=== PATIENT | female | born 1970 | race Caucasian/White ===

== ENCOUNTER 2021-05-01 08:34 | Inpatient (IN) | payer MEDICAID, SELFPAY ==
[2021-05-01] VITALS (13 sets, daily range): BP systolic 94–137; BP diastolic 61–89; PULSE 60–94; RESP 16–18; TEMP 36.1–36.8; O2SAT 92–98; BMI 40.6
--- NOTE | 2021-05-01 08:11 | NURSING ---
Per Dr. Ag pt is going to be taken care of by Dr. Burroughs. Dr. Burroughs paged to inform that direct admit is here.
--- NOTE | 2021-05-01 10:31 | HP.PCM.HOS_ITS ---
HPI - General General Date of Admission: 05/01/21 HPI Narrative ROLANDO SHARPE, is a 51 F who presents from home after a mechanical fall fractured her left ankle. This happened last evening, she states that she was opening yogurt and had thrown a little way and when she turned back to the table she lost her balance and broke her ankle. She lives in [place]. She was found to have a trimalleolar fracture and was accepted by orthopedic surgery in transfer for repair. She denies any lightheadedness or dizziness. No chest pain. She states she has a osteoporosis and had broken her other ankle a few years ago as well as her arm on the left well. She does not appear to be on any bisphosp honate COUNTS INCLUDE 234 BEDS AT THE [facility] Medical History (Updated 05/01/21 @ 10:[address] Lauro Burroughs MD) Anemia Anxiety COPD (chronic obstructive pulmonary disease) Coronary artery disease Depression DVT (deep venous thrombosis) GERD (gastroesophageal reflux disease) Hepatitis Hypertension Migraines Myocardial infarct Osteoporosis Home Medications albuterol sulfate 2.5 mg INHALATION Q6H 05/01/21 [History Last Taken Unknown] amitriptyline 25 mg PO QHS 05/01/21 [History Last Taken Unknown] aspirin [Aspirin Low Dose] 81 mg PO DAILY 05/01/21 [History Last Taken Unknown] atorvastatin 80 mg PO QHS 05/01/21 [History Last Taken Unknown] clonidine HCl 0.1 mg PO BID 05/01/21 [History Last Taken Unknown] famotidine 20 mg PO BID 05/01/21 [History Last Taken Unknown] fluoxetine 40 mg PO DAILY 05/01/21 [History Last Taken Unknown] furosemide 40 mg PO BID 05/01/21 [History Last Taken Unknown] gabapentin 800 mg PO TID 05/01/21 [History Last Taken Unknown] hyoscyamine sulfate 0.125 mg PO Q4H PRN 05/01/21 [History Last Taken Unknown] metoprolol succinate 25 mg PO DAILY 05/01/21 [History Last Taken Unknown] nystatin 1 applic TOPICAL BID PRN 05/01/21 [History Last Taken Unknown] ondansetron 4 mg PO Q8H PRN 05/01/21 [History Last Taken Unknown] promethazine 12.5 mg PO Q6H PRN PRN 05/01/21 [History Last Taken Unknown] rimegepant [Nurtec ODT] 75 mg PO DAILY PRN 05/01/21 [History Last Taken Unknown] Allergy/AdvReac Type Severity Reaction Status Date / Time amoxicillin Allergy Anaphylaxis Verified 05/01/21 09:45 cephalexin Allergy Anaphylaxis Verified 05/01/21 09:45 clarithromycin [From Biaxin] Allergy Anaphylaxis Verified 05/01/21 09:45 cortisone Allergy Anaphylaxis Verified 05/01/21 09:45 erythromycin base Allergy Anaphylaxis Verified 05/01/21 09:45 hydralazine Allergy Other Verified 05/01/21 09:45 morphine Allergy Shortness Verified 05/01/21 09:45 of breath Penicillins Allergy Anaphylaxis Verified 05/01/21 09:45 Sulfa (Sulfonamide Allergy Shortness Verified 05/01/21 09:45 Antibiotics) of breath amlodipine [From Norvasc] AdvReac Other Verified 05/01/21 09:45 hydroxyzine AdvReac Nausea/Vom/ Verified 05/01/21 09:45 Diarrhea ibuprofen AdvReac Nausea/Vom/ Verified 05/01/21 09:45 Diarrhea ketorolac AdvReac Diarrhea Verified 05/01/21 09:45 paper tape AdvReac Other Uncoded 05/01/21 09:45 Family History (Updated 05/01/21 @ 10:[address] Lauro Burroughs MD) Other COPD (chronic obstructive pulmonary disease) Diabetes Heart disease Surgical History (Updated 05/01/21 @ 10:[address] Lauro Burroughs MD) History of cholecystectomy History of coronary artery stent placement Status post total left knee replacement Social History Smoking Status: Current every day smoker tobacco type: cigarettes ROS Constitutional Constitutional: Denies chills, fatigue, fever(s) or malaise Eyes Eyes: Denies blurry vision ENT HEENT: Denies headache(s) or nasal discharge Cardiovascular Cardiovascular: Denies chest pain, dyspnea on exertion or syncope Respiratory/Chest Respiratory/Chest: Denies cough, shortness of breath at rest or shortness of breath with exertion Gastrointestinal Gastrointestinal: Denies constipation, diarrhea, nausea or vomiting Genitourinary Genitourinary: Denies dysuria Musculoskeletal Musculoskeletal: Reports joint pain Neurologic Neurologic: Denies focal weakness, numbness or tremor(s) Psychiatric Psychiatric: Denies anxiety or depression Vital Signs Vital Signs Vital Signs: 05/01/21 06:54 05/01/21 06:55 Temperature 97.7 F L Temperature Source Oral Pulse Rate 60 69 Respiratory Rate 18 Blood Pressure 108/72 Blood Pressure Mean 84 Blood Pressure Source Doppler/Manual Blood Pressure Position Semi-Fowlers Blood Pressure Location Right Forearm Pulse Ox 94 Oxygen Delivery Method Room Air Weight Weight: 236 lb 15.951 oz Body Mass Index (BMI) 40.6 Physical Exam Const alert, oriented x3 and no apparent distress General Appearance: cooperative HEENT normocephalic and moist oral mucous membranes Eyes PERRL, EOMs intact bilaterally and conjunctivae normal Neck supple and no JVD Resp normal respiratory effort, no retractions, no use of accessory muscles and clear to auscultation bilaterally Auscultation: Negative for crackles, rales, rhonchi or wheezes Cardio regular rate, regular rhythm, S1 normal heart sound, S2 normal heart sound and no murmurs GI soft to palpation, non-tender and non-distended; Negative for hepatosplenomegaly Extremity no clubbing, cyanosis or edema Extremity Narrative: Left ankle is in a splint and wrapped she does have sensation in her toes Skin no rashes or lesions noted Neuro no focal motor deficits and no sensory deficits noted Psych affect normal Appearance: appropriate Assessment & Plan Assessment/Plan (1) Trimalleolar fracture of right ankle: PLAN: 1. Right trimalleolar fracture -Mechanism was mechanical -Consult orthopedic surgery for repair -We'll check BMP and a CBC in the morning -She is trying to quit smoking and denies any significant shortness of breath or chest pain with ambulation -She is below average risk based on the calculator 2. CAD/HTN/HLD/morbid obesity -Blood pressures are stable and she is denying any chest pain or shortness of breath -Continue with her home medications -Given her Lasix, will monitor her creatinine before and after surgery to make any adjustment -BMI of 40.7, discussed lifestyle modifications. Also encouraged cessation of tobacco which she states she is in the process of 3. Anxiety/depression -Stable -Continue with amitriptyline DVT: Heparin Charges/Coding Visit Charges Inpatient E&M: 65218 Init Hosp L3
[2021-05-01] MEDS: 0.9% Normal Saline 1,000 ML 100 ML IV (10:42)
[2021-05-01] MEDS: HYDROmorphone 0.5 MG/0.5 ML SYRINGE IV ×2 (10:42→22:18)
--- NOTE | 2021-05-01 12:30 | CASEMGMT ---
RN AJAY OUTDOOR ADVENTURE GUIDES AJAY to room to meet with patient for initial transition planning/care coordination assessment. RN AJAY introduced self and role at [facility]. Pt voices understanding and consents to assessment at this time. Pt resting in bed in no distress at this time. Pt is A/O at this time and answers all questions appropriately. Care providers, pharmacy, and demographics verified/updated at this time. PCP: Amaris GUTIERREZ Specialists: Sees a psychiatrist Preferred Pharmacy: [facility] Retail Insurance:[facility] Prescription Benefit: Yes Living Will/HPOA: Pt does not currently have LW/HCPOA and declines info at this time. LNOK: Dad, Eris Kyle. Aunt, Lena Kyle Living Arrangements: Lives alone in 4th floor apt. Elevator access. No steps to enter. Independent prior to fall. Has Marija MOSS, through [facility] [employer] in [place]. Marija's # is: [phone]. She states she would like to get an aide once she returns home. Lori PRESTON, made aware. Transportation: Marija MOSS, provides all transportation. DME: States has the following DME: shower chair, rails/grab bars, nebulizer, walker, rollator. Has O2 @ home @ 2l/m continuously that she got from a company in [place]. She does not remember name of agency. Amaris GUTIERREZ, set it up. She states she has it available, but does not use it. Pt states no need for further DME at this time. HHC/SNF: No hx of SNF. Has had HHC in the past: [facility] in [facility]. Plans are for pt to go to OR today for external fixator application under anesthesia. Pt prefers to go home once medically ready, if able. PLAN: TBD by clinical course of treatment and progress w/therapy. Jaylene CONDON RN, CM
--- NOTE | 2021-05-01 12:51 | CON.PCM.OR_ITS ---
HPI Consult Data Date of Consult: 05/01/21 HPI Narrative HPI Narrative: ROLANDO SHARPE, is a 51 F who presents As a transfer from [place] early this morning 05/01/2021. She sustained a ground-level twisting injury to her right ankle. She was not reduced in the emergency department. She was splinted. Due to lack of orthopedic coverage, the emergency room physician contacted myself see if I would be willing to care the patient. I recommended transfer through the hospitalist. I would follow in consultation. Patient reports right ankle pain but denies any other associated injuries at time of examination. Patient had prior left ankle ORIF from a remote trauma. She denies numbness or tingling in the right lower extremity. Past medical history is significant for DVT, COPD, CAD, hepatitis, ID, stenting for which she takes aspirin and Effient. Her last dose of Effient was yesterday 04/30/2021. She has been n.p.o. since last night. [facility] Medical History (Updated 05/01/21 @ 10:[address] Lauro Burroughs MD) Anemia Anxiety COPD (chronic obstructive pulmonary disease) Coronary artery disease Depression DVT (deep venous thrombosis) GERD (gastroesophageal reflux disease) Hepatitis Hypertension Migraines Myocardial infarct Osteoporosis Home Medications albuterol sulfate 2.5 mg INHALATION Q6H 05/01/21 [History Last Taken Unknown] amitriptyline 25 mg PO QHS 05/01/21 [History Last Taken Unknown] aspirin [Aspirin Low Dose] 81 mg PO DAILY 05/01/21 [History Last Taken Unknown] atorvastatin 80 mg PO QHS 05/01/21 [History Last Taken Unknown] calcium carbonate-vitamin D2 [Oyster Shell Calcium-Vit D2] 1 tab PO BID 05/01/21 [History Last Taken Unknown] clonidine HCl 0.1 mg PO BID 05/01/21 [History Last Taken Unknown] famotidine 20 mg PO BID 05/01/21 [History Last Taken Unknown] fluoxetine 40 mg PO DAILY 05/01/21 [History Last Taken Unknown] furosemide 40 mg PO BID 05/01/21 [History Last Taken Unknown] gabapentin 800 mg PO TID 05/01/21 [History Last Taken Unknown] hyoscyamine sulfate 0.125 mg PO Q4H PRN 05/01/21 [History Last Taken Unknown] metoprolol succinate 25 mg PO DAILY 05/01/21 [History Last Taken Unknown] nystatin 1 applic TOPICAL BID PRN 05/01/21 [History Last Taken Unknown] ondansetron 4 mg PO Q8H PRN 05/01/21 [History Last Taken Unknown] pantoprazole 40 mg PO DAILY 05/01/21 [History Last Taken Unknown] potassium chloride 40 meq PO BID 05/01/21 [History Last Taken Unknown] promethazine 12.5 mg PO Q6H PRN PRN 05/01/21 [History Last Taken Unknown] rimegepant [Nurtec ODT] 75 mg PO DAILY PRN 05/01/21 [History Last Taken Unknown] Allergy/AdvReac Type Severity Reaction Status Date / Time amoxicillin Allergy Anaphylaxis Verified 05/01/21 09:45 cephalexin Allergy Anaphylaxis Verified 05/01/21 09:45 clarithromycin [From Biaxin] Allergy Anaphylaxis Verified 05/01/21 09:45 cortisone Allergy Anaphylaxis Verified 05/01/21 09:45 erythromycin base Allergy Anaphylaxis Verified 05/01/21 09:45 hydralazine Allergy Other Verified 05/01/21 09:45 morphine Allergy Shortness Verified 05/01/21 09:45 of breath Penicillins Allergy Anaphylaxis Verified 05/01/21 09:45 Sulfa (Sulfonamide Allergy Shortness Verified 05/01/21 09:45 Antibiotics) of breath amlodipine [From Norvasc] AdvReac Other Verified 05/01/21 09:45 hydroxyzine AdvReac Nausea/Vom/ Verified 05/01/21 09:45 Diarrhea ibuprofen AdvReac Nausea/Vom/ Verified 05/01/21 09:45 Diarrhea ketorolac AdvReac Diarrhea Verified 05/01/21 09:45 paper tape AdvReac Other Uncoded 05/01/21 09:45 Family History (Updated 05/01/21 @ 10:[address] Lauro Burroughs MD) Other COPD (chronic obstructive pulmonary disease) Diabetes Heart disease Surgical History (Updated 05/01/21 @ 10:[address] Lauro Burroughs MD) History of cholecystectomy History of coronary artery stent placement Status post total left knee replacement Social History Smoking Status: Current every day smoker tobacco type: cigarettes ROS ROS Narrative 10 point review of systems obtained, negative unless otherwise noted in HPI. Vital Signs Vital Signs Vital Signs: 05/01/21 06:54 05/01/21 06:55 Temperature 97.7 F L Temperature Source Oral Pulse Rate 60 69 Respiratory Rate 18 Blood Pressure 108/72 Blood Pressure Mean 84 Blood Pressure Source Doppler/Manual Blood Pressure Position Semi-Fowlers Blood Pressure Location Right Forearm Pulse Ox 94 Oxygen Delivery Method Room Air Weight Weight: 236 lb 15.951 oz Body Mass Index (BMI) 40.6 Physical Exam Narrative General -A&Ox3, NAD, appears stated age. Vital signs stable, afebrile. Respiratory -normal work of breathing, no intercostal retractions. CV -pulses regular, brisk capillary refill ?4 limbs. Abdomen-soft, nontender, nondistended. No guarding, rigidity, rebound tenderness. Musculoskeletal/neurologic -full range of motion nontender throughout bilateral upper extremities, left lower extremity with full sensation and strength in all dermatomes and myotomes. No midline cervical tenderness. Right lower extremity-AO type Short leg splint in place right lower extremity. Wiggles toes on command. Brisk capillary refill in the toes. Sensation intact along the dorsal and plantar aspect of the interspaces and toes. Nontender about the knee. No pain with logroll of the hip. Pelvis is stable, nontender. X-rays reviewed from [facility] 04/30/2021 Trimalleolar ankle fracture dislocation with transverse medial malleolus, lateral dislocation of the talus, transsyndesmotic E fibula, posterior malleoli are avulsion fracture encompassing likely 20% of the joint surface. Assessment & Plan Assessment/Plan (1) Trimalleolar fracture of right ankle: PLAN: Patient has a borderline dislocation of her right trimalleolar ankle fracture which was not reduced in the emergency department, it was splinted in situ. We discussed open reduction internal fixation acutely versus close reduction with application of external fixator of the right ankle. Due to her blood thinner Effient, which I would recommend she stop for 7 days prior to surgery due to risk of blood loss and wound healing problems, I recommended a closed reduction under anesthesia and application of ankle spanning external fixator right ankle. We discussed the risk, benefits, alternatives the procedure. Risks include but are not limited to bleeding, infection, loss of life limb, risk of anesthesia, persistent pain, need for additional surgery including removal of the external fixator, breakage of orthopedic hardware if bearing weight, stiffness, posttraumatic arthritis. Patient expressed understanding his risk was proceed with surgery. Informed consent obtained we will plan on elena rgjames this afternoon when a room becomes available. Clindamycin for antibiotic prophylaxis prior to incision N.p.o. Nonweightbearing right lower extremity
--- NOTE | 2021-05-01 13:51 | EKG12_ITS ---
Test Reason : PACU Blood Pressure : / mmHG Vent. Rate : 075 BPM Atrial Rate : 075 BPM P-R Int : 144 ms QRS Dur : 078 ms QT Int : 374 ms P-R-T Axes : 045 053 047 degrees QTc Int : 417 ms Normal sinus rhythm with sinus arrhythmia Normal ECG No previous ECGs available Confirmed by PRISCA CARDONA, KAYODE ([id number]), photo editor ELA OWENS ([id number]) on 05/04/2021 2:25:12 P M Referred By: JC Confirmed By:HUNTER COPE MD
--- NOTE | 2021-05-01 14:55 | RAD_ITS ---
STUDY: Fluoroscopically guided ORIF surgery of the right ankle. REASON FOR EXAM: Female, 51 years old. CLOSED REDUCTION W/ EXTERNAL FIXATION RIGHT ANKLE TECHNIQUE: Fluoroscopy was utilized during ORIF surgery of the ankle. The radiologist was not present in the room. 4 images were obtained during the exam. COMPARISON: None. FINDINGS: Images reveal metallic devices overlying bony structures. RAD/Ankle 2 Views IMPRESSION: Fluoroscopically guided RF surgery through the ankle. For details please see operative report. Electronically Signed: Denisse Younger MD at 0:21 EST , Service support ,
[2021-05-01] MEDS: Bupivacaine Mpf 0.5% 30 ML VIAL (15:41)
--- NOTE | 2021-05-01 15:55 | OP.PCM_ITS ---
Report of Operation Date of Procedure: 05/01/21 Description of Surgical Findings:: Preoperative diagnosis: Right ankle trimalleolar fracture dislocation Postoperative diagnosis: Right ankle trimalleolar fracture dislocation Procedure: 1. Administration of intra-articular ankle right block 2. Closed reduction right ankle fracture dislocation 3. Application of spanning external fixator right ankle Surgeon: Lauro Paiz DO Milk Delivery Driver: Karen Jackson PA-C Anesthesia: MAC with popliteal block and intra-articular ankle block Anesthesiologist: Dr. Munguia Complications: None Drains: None Estimated blood loss: 20 cc Urinary output: Per anesthesia record IV fluids: Per anesthesia record Specimens: None Surgical implants: Myron Lee 3 external fixation system with apex pins times two 5 mm diameter, calcaneus transfixing pin 4/5 x 250 mm. Coated Carbon connecting rods 400 mm x 2 Surgical indications: This a 51-year-old female who was a transfer from [facility]. She sustained a ground-level fall and sustained a right trimalleolar fracture of her ankle. Due to lack of orthopedic coverage she was transferred to [facility]. I saw the patient in consultation. X-rays from the outside institution were reviewed shortly after consultation. X-rays demonstrated a laterally dislocated right trimalleolar ankle fracture. I recommended urgent closed reduction with application of external fixator versus open reduction internal fixation. Patient does take Effient as an antiplatelet drug due to a remote stent in her heart. Due to recommendations of 7 days off antiplatelet medication and suspected soft tissue swelling, I recommended a closed reduction under anesthesia with application of ankle spanning external fixator. The risk, benefits alternatives to procedure were reviewed with patient at length she agreed to proceed. She expressed understanding wish she would need to undergo a subsequent procedure for removal of external fixator and likely open reduction internal fixation depending on her medical status and soft tissues. Informed consent obtained. Description of procedure: Patient was identified in the preoperative holding area by name, medical record number, date of . The operative extremity was marked. All questions answered patient satisfaction. A popliteal block was administered by Dr. Munguia prior to the procedure. Patient was brought to the operative suite and positioned supine a standard operating table. MAC anesthesia was induced. Splint was removed. We bumped the right hip to internally rotate the leg and elevated on bath blankets. I then administered a intra-articular ankle block with 10 cc total of 0.5% plain Marcaine anteriorly after prepping the ankle with rubbing alcohol. We then prepped and draped the right lower extremity in a normal, sterile orthopedic fashion. We performed a timeout with all parties in attendance in agreement with the side, site, operation be performed. No concerns were voiced and we elected to proceed. 900 mg clindamycin was administered by anesthesia staff. We first examined the skin. There is significant ecchymosis and suspected early blistering over the anterior medial ankle. I performed a closed reduction maneuver with traction and varus force. C arm was used to demonstrate appropriate reduction. We then plan to apply our standard delta frame external fixator. I planned my tibial pins 10 cm proximal to the end of the suspected tibial fixation. I marked the skin at appropriate levels. Skin was sharply incised with 15 blade scalpel. We drilled bicortically for 2 pins. Pins were placed to an appropriate depth and tightened by hand. He is achieved excellent fixation. We then turned attention to the calcaneus. Using a perfect lateral fluoroscopic image of the ankle, I planned a transfixion pin of the calcaneus 2 cm anterior and proximal to the posterior plantar corner of the calcaneus. This was drilled bicortically and driven out the lateral skin. We drilled the pin to an appropriate depth. We then constructed our delta frame. Reduction maneuver was applied and held with traction. Fluoroscopic images confirmed appropriate reduction. We then tightened the frame ensuring stability. We then applied Xeroform and pressure dressing gauze and Adolfo wrap over top of the wounds and leg. Patient tolerated procedure well without complication. She was transferred to her hospital bed and subsequently to PACU in stable condition. Need for skilled temporary administrative assistant: Karen Jackson PA-C was critical to the outcome of the case. During the course of the procedure the physician temporary administrative assistant played a vital role. Her intimate knowledge of my steps in the procedure aided in safe and expedient completion of the procedure. The PA played a vital role in positioning particularly in obtaining the appropriate positioning. Mrs. Jackson was able to hold the closed reduction maneuver while I performed final tightening of the fixation device, which was critical to the outcome of the procedure. Postoperative plan: Patient will be nonweightbearing to the operative extremity. Likely obtaining a CT scan of the right ankle tomorrow. She will likely need definitive fixation in the coming weeks once soft tissues allow. We discussed in the preoperative holding area about following up with her stitch welder in [place]. I discussed this is definitely possibility seen as she is so far away from home and the nonurgent timeframe now that we have achieved external fixation. We will determine definitive planning surgically in the next day or so. Okay to anticoagulate from my standpoint. PT/OT. Likely will need placement as patient does live alone.
--- NOTE | 2021-05-01 16:15 | SUR.PHASEI ---
blackmon catheter ordered preop by Dr Meyer at patients request. catheter placed by Kadeem BAILEY. Pt stated that catheter was hurting, Dr Prince states that it can be removed after surgery. Catheter removed by Eliot Wylie RN
--- NOTE | 2021-05-01 17:12 | SUR.PHASEI ---
dressing reinforced with kerlix, abds and kari wrap
[2021-05-01] MEDS: 0.9% Saline Lock 10 ML Syringe IV (22:18)
[2021-05-02] VITALS (9 sets, daily range): BP systolic 116–139; BP diastolic 75–82; PULSE 76–86; RESP 16–18; TEMP 36.6–37.3; O2SAT 86–98
[2021-05-02] MEDS: 0.9% Normal Saline 1,000 ML 100 ML IV (01:21)
[2021-05-02] MEDS: HYDROmorphone 0.5 MG/0.5 ML SYRINGE IV ×5 (03:00→20:37)
--- NOTE | 2021-05-02 03:15 | NURSING ---
pt unable to void, blackmon placed.
[2021-05-02] MEDS: Nystatin Powder 15gm Bottle 1 APPLIC TOPICAL (05:56)
[2021-05-02 07:24] LABS: Absolute Neutrophil Count 4.4 X10^3/uL (2.0-7.7); Basophil# 0.02 X10^3/uL; Basophil% 0.3 % (0-1); Eosinophil# 0.01 X10^3/uL; Eosinophils% 0.2 % (0-5); Hematocrit 31.1 % (37-47); Lymphocyte % 21.4 % (19-41); Mean Corp Hgb Conc 32.2 g/dL (32-36); Mean Corpuscular Hgb 30.3 pg (27.0-32.0); Mean Corpuscular Volume 94.2 fL (81-99); Mean Platelet Vol. 12.1 fl (6.2-12.0); Monocyte% 10.7 % (0-10); NRBC Flagged by Analyzer 0 % (0-5); Neutrophil # 4.38 X10^3/uL (2.7-7.7); Neutrophil % 67.1 % (47-70); Platelet Count 144 K/mm3 (150-450); RBC Distribution Width CV 12.8 % (11.6-14.6); RBC Distribution Width SD 43.9 fl (35.1-43.9); White Blood Count 6.5 K/mm3 (4.4-11.0)
[2021-05-02 07:53] LABS: Anion Gap 2 (5-15); BUN 8 mg/dL (7-18); BUN/Creat Ratio 13.1 RATIO (10-20); Calcium,Total 7.7 mg/dL (8.5-10.1); Chloride 107 mmol/L (98-107); Creatinine, Serum 0.61 mg/dL (0.55-1.02); EST Glomerular Filtration Rate 110 mL/min (>60); Est Glom Filt Rate - Afr Amer 133 mL/min (>60); Estimated Creatinine Clearance 94.22 ml/min; Glucose 113 mg/dL (74-106); Potassium 3.7 mmol/L (3.5-5.1); Sodium Level 140 mmol/L (136-145)
[2021-05-02] MEDS: oxyCODONE 5 MG Tablet 10 MG PO ×4 (08:06→22:53)
[2021-05-02] MEDS: Heparin Injection (Vial) 5,000 UNIT/ML VIAL 5000 UNIT SC ×3 (08:30→22:54)
--- NOTE | 2021-05-02 08:34 | PCM.PN.ORT ---
Subjective Subjective Patient seen and examined at bedside this morning. Significant bloody oozing noted from the proximal pins overnight which was reinforced by nursing. Denies fevers, chills, nausea vomiting, chest pain or shortness of breath. Pain has not been adequately controlled with IV Dilaudid only. She states her pain is improved from preop. She denies any new numbness or tingling and states sensation and motor are returning after her peroneal nerve block. Objective Data Objective Data Vital Signs: Vital Signs Temp Pulse Resp BP Pulse Ox 98.3 F 81 18 116/75 93 05/02/21 08:16 05/02/21 08:16 05/02/21 08:16 05/02/21 08:16 05/02/21 08:16 Oxygen Flow Rate (L/min) 3 Oxygen Delivery Method Nasal Cannula Weight: 236 lb 15.951 oz Body Mass Index (BMI) 40.6 Intake & Output: Intake and Output for Last 24 Hours 04/30/21 05/01/21 05/02/21 23:59 23:59 23:59 Intake Total 1106 / 1206 200 / 200 Output Total 600 / 600 500 / 500 Balance 506 / 606 -300 / -300 Lab / Micro Data Result Diagrams: 05/02/21 06:35 05/02/21 06:35 Labs: Laboratory Results - last 24 hr 05/02/21 06:35: WBC 6.5, RBC 3.30 L, Hgb 10.0 L, Hct 31.1 L, MCV 94.2, MCH 30.3, MCHC 32.2, RDW Std Deviation 43.9, RDW Coeff of Anna 12.8, Plt Count 144 L, MPV 12.1 H, Immature Gran % (Auto) 0.300, Neut % (Auto) 67.1, Lymph % (Auto) 21.4, [place] % (Auto) 10.7 H, Eos % (Auto) 0.2, Baso % (Auto) 0.3, Absolute Neuts (auto) 4.4, Absolute Lymphs (auto) 1.40, Nucleated RBC % 0 05/02/21 06:35: Sodium 140, Potassium 3.7, Chloride 107, Carbon Dioxide 31.0, Anion Gap 2 L, BUN 8, Creatinine 0.61, Estim Creat Clear Calc 94.22, Est GFR (MDRD) Af Amer 133, Est GFR (MDRD) Non-Af 110, BUN/Creatinine Ratio 13.1, Glucose 113 H, Calcium 7.7 L Micro: Microbiology 05/01/21 13:50 Nasal Secretion SARS-CoV-2 Antigen (Rapid) - Final Radiography Diagnostic Testing: Radiology Impression Ankle X-Ray 05/01/21 14:55 IMPRESSION: Fluoroscopically guided RF surgery through the ankle. For details please see operative report. Electronically Signed: Denisse Younger MD at 0:21 EST , Service support , Physical Exam Narrative General - A&Ox3, NAD. VSS/AF right lower extremity -incisional dressing saturated with sanguinous fluid from the proximal pins. Dressing removed. Ecchymotic overlying the anterior medial ankle with suspected developing blistering. minimal bloody drainage from the most proximal pin site, other pin sites appear hemostatic. SILT Sural, Saphenous, SPN, DPN, Tibial N. distributions. DP, PT 2+. BCR. FHL, EHL 5/5. No calf TTP. Assessment & Plan Assessment/Plan (1) Trimalleolar fracture of right ankle: PLAN: POD#1 s/p closed reduction, placement of right ankle external fixator - Pain control -oxycodone ordered for p.o. analgesia - Medicine following for medical management - PT/OT -nonweightbearing right lower extremity - DVT PPX -heparin per primary -Patient will likely need placement. Patient is from [place]. She states she has a elevator installer apprentice who does cut her toenails near her home. I encouraged her to reach out to her elevator installer apprentice regarding definitive fixation of her ankle. If he is willing to take on the case, I would be happy to discuss the case with him. She would like placement, if needed, to be closer to home near [place]. She will likely need definitive fixation in the coming weeks as her soft tissues allow. - Case management - D/C planning
--- NOTE | 2021-05-02 09:57 | PN.HOSP_ITS ---
Subjective Subjective Doing well, status post exfix of her right ankle. She still having some pain. Objective Data Objective Data Vital Signs: Vital Signs Temp Pulse Resp BP Pulse Ox 98.3 F 81 18 116/75 86 05/02/21 08:16 05/02/21 08:16 05/02/21 08:16 05/02/21 08:16 05/02/21 08:25 Oxygen Flow Rate (L/min) 3 Oxygen Delivery Method Room Air Weight: 236 lb 15.951 oz Body Mass Index (BMI) 40.6 Intake & Output: Intake and Output for Last 24 Hours 05/01/21 05/02/21 05/03/21 03:59 03:59 03:59 Intake Total 1206 / 1206 100 / 100 Output Total 600 / 600 500 / 500 Balance 606 / 606 -400 / -400 Lab / Micro Data Result Diagrams: 05/02/21 06:35 05/02/21 06:35 Labs: Laboratory Results - last 24 hr 05/02/21 06:35: WBC 6.5, RBC 3.30 L, Hgb 10.0 L, Hct 31.1 L, MCV 94.2, MCH 30.3, MCHC 32.2, RDW Std Deviation 43.9, RDW Coeff of Anna 12.8, Plt Count 144 L, MPV 12.1 H, Immature Gran % (Auto) 0.300, Neut % (Auto) 67.1, Lymph % (Auto) 21.4, [place] % (Auto) 10.7 H, Eos % (Auto) 0.2, Baso % (Auto) 0.3, Absolute Neuts (auto) 4.4, Absolute Lymphs (auto) 1.40, Nucleated RBC % 0 05/02/21 06:35: Sodium 140, Potassium 3.7, Chloride 107, Carbon Dioxide 31.0, Anion Gap 2 L, BUN 8, Creatinine 0.61, Estim Creat Clear Calc 94.22, Est GFR (MDRD) Af Amer 133, Est GFR (MDRD) Non-Af 110, BUN/Creatinine Ratio 13.1, Glucose 113 H, Calcium 7.7 L Micro: Microbiology 05/01/21 13:50 Nasal Secretion SARS-CoV-2 Antigen (Rapid) - Final Radiography Diagnostic Testing: Radiology Impression Ankle X-Ray 05/01/21 14:55 IMPRESSION: Fluoroscopically guided RF surgery through the ankle. For details please see operative report. Electronically Signed: Denisse Younger MD at 0:21 EST , Service support , Physical Exam Const alert, oriented x3 and no apparent distress General Appearance: cooperative HEENT normocephalic and moist oral mucous membranes Eyes PERRL, EOMs intact bilaterally and conjunctivae normal Neck supple and no JVD Resp normal respiratory effort, no retractions, no use of accessory muscles and clear to auscultation bilaterally Auscultation: Negative for crackles, rales, rhonchi or wheezes Cardio regular rate, regular rhythm, S1 normal heart sound, S2 normal heart sound and no murmurs GI soft to palpation, non-tender and non-distended; Negative for hepatosplenomegaly Extremity no clubbing, cyanosis or edema Extremity Narrative: Right ankle with an exfix in place postoperatively Skin no rashes or lesions noted Neuro no focal motor deficits and no sensory deficits noted Psych affect normal Appearance: appropriate Assessment & Plan Assessment/Plan (1) Trimalleolar fracture of right ankle: PLAN: 1. Right trimalleolar fractureStatus post repair 05/01/2021 -Mechanism was mechanical -Consult orthopedic surgery for repair -Lab work is okay -She is trying to quit smoking and denies any significant shortness of breath or chest pain with ambulation -Continue with PT/OT for evaluation and possible placement. She is from [place] so we will have to find a SNF closer to home 2. CAD/HTN/HLD/morbid obesity -Blood pressures are stable and she is denying any chest pain or shortness of breath -Continue with her home medications -Creatinine stable, can resume her home Lasix and discontinue IV fluids continue to encourage p.o. intake -BMI of 40.7, discussed lifestyle modifications. Also encouraged cessation of tobacco which she states she is in the process of 3. Anxiety/depression -Stable -Continue with amitriptyline DVT: Heparin Charges/Coding Visit Charges Inpatient E&M: 18482 Subs Hosp L2
--- NOTE | 2021-05-02 11:20 | CASEMGMT ---
Addendum entered by Dee Dee Osborn 05/02/21 15:00: Social Work Return call from [facility] and they are able to accept pt. Precert to be started at this time. Pt updated that [facility] has closed but [facility] can accept. Pt is agreeable to d/c plan and aware that precert will need obtained. PETRONA Perez Original Note: Social Work Physician and Therapy recommending SNF prior to return home. SW met with pt and introduced self and role of SW. Pt is agreeable to short term SNF and states she would like to return to [facility]. SW provided list of SNF providers in network with insurance and in geographical region. Pt choices 1. [facility] 2. [facility] and 3. [facility]. Phone call to [facility] and this SNF has been closed. Call to [facility] and they do have beds available. Referral faxed, SW will await determination of acceptance. Plan: [facility], pending acceptance and insurance precert PETRONA Perez
[2021-05-02] MEDS: Pantoprazole Sodium 40 MG Tablet PO (11:23)
[2021-05-02] MEDS: Metoprolol(XL)Succ 25 MG Tablet PO (11:23)
[2021-05-02] MEDS: FLUoxetine 20 MG Capsule 60 MG PO (11:23)
[2021-05-02] MEDS: Albuterol 2.5 MG/3 ML VIAL.NEB. INHALATION ×2 (13:27→19:08)
[2021-05-02] MEDS: Furosemide 40 MG Tablet PO (17:05)
--- NOTE | 2021-05-02 18:06 | NURSING ---
NOTED THAT PT HAS NOT EATEN ANY MEALS/ TODAY DESPITE MANY ENCOURAGEMENTS TO DO SO. PT ALSO NOT DRINKING, AGAIN ENCOURAGED MANY TIMES TO DRINK-SEVERAL OPTIONS OF FOOD AND DRINKS OFFERED. PT CONTINUES TO REFUSE AND STATES I AM EATING. WILL CONT TO ENCOURAGE AND OFFER FOOD AND DRINK.
[2021-05-02] MEDS: Amitriptyline 25 MG Tablet PO (22:54)
[2021-05-02] MEDS: Atorvastatin Calcium 80 MG Tablet PO (22:54)
[2021-05-03] VITALS (9 sets, daily range): BP systolic 95–104; BP diastolic 54–64; PULSE 74–91; RESP 16–18; TEMP 36.7–37.3; O2SAT 88–100
[2021-05-03] MEDS: HYDROmorphone 0.5 MG/0.5 ML SYRINGE IV ×4 (00:44→23:22)
--- NOTE | 2021-05-03 04:23 | NURSING ---
pt asleep in bed. no oxygen on. checked pulse ox on RA and noted at 65%. applied 4l n/c. pt awakened and followed command. 02 saturations increased to 93% on 4l n/c. pt droggy but able to state name & birthdate. pt instructed to leave nasal cannula on.
[2021-05-03] MEDS: Heparin Injection (Vial) 5,000 UNIT/ML VIAL 5000 UNIT SC (05:02)
[2021-05-03] MEDS: Albuterol 2.5 MG/3 ML VIAL.NEB. INHALATION ×2 (06:56→13:12)
[2021-05-03 07:41] LABS: Absolute Lymphocyte Count 1.01 X10^3/uL (0.83-4.51); Absolute Neutrophil Count 5.5 X10^3/uL (2.0-7.7); Basophil# 0.01 X10^3/uL; Basophil% 0.1 % (0-1); Hematocrit 27.7 % (37-47); Hemoglobin 8.8 g/dL (12.0-15.0); Lymphocyte # 1.01 X10^3/ul (0.83-4.51); Lymphocyte % 14.2 % (19-41); Mean Corp Hgb Conc 31.8 g/dL (32-36); Mean Corpuscular Volume 94.5 fL (81-99); Monocyte# 0.63 X10^3/uL; Monocyte% 8.8 % (0-10); NRBC Flagged by Analyzer 0 % (0-5); Neutrophil # 5.45 X10^3/uL (2.7-7.7); Neutrophil % 76.5 % (47-70); Platelet Count 152 K/mm3 (150-450); RBC Distribution Width CV 12.7 % (11.6-14.6); RBC Distribution Width SD 44.3 fl (35.1-43.9); Red Blood Count 2.93 M/mm3 (4.2-5.4); White Blood Count 7.1 K/mm3 (4.4-11.0)
[2021-05-03] MEDS: Furosemide 40 MG Tablet PO ×2 (08:01→17:59)
[2021-05-03] MEDS: Pantoprazole Sodium 40 MG Tablet PO (08:02)
[2021-05-03] MEDS: oxyCODONE 5 MG Tablet 10 MG PO ×2 (08:02→17:59)
[2021-05-03] MEDS: FLUoxetine 20 MG Capsule 60 MG PO (08:03)
[2021-05-03] MEDS: Metoprolol(XL)Succ 25 MG Tablet PO (08:03)
--- NOTE | 2021-05-03 08:24 | CPS ---
pt placed back on 2 lpm. Saturation 91%
[2021-05-03 08:35] LABS: Anion Gap 6 (5-15); BUN 7 mg/dL (7-18); BUN/Creat Ratio 11.8 RATIO (10-20); Calcium,Total 8.2 mg/dL (8.5-10.1); Chloride 104 mmol/L (98-107); Creatinine, Serum 0.59 mg/dL (0.55-1.02); EST Glomerular Filtration Rate 113 mL/min (>60); Est Glom Filt Rate - Afr Amer 137 mL/min (>60); Estimated Creatinine Clearance 97.41 ml/min; Glucose 115 mg/dL (74-106); Potassium 3.7 mmol/L (3.5-5.1); Sodium Level 141 mmol/L (136-145)
--- NOTE | 2021-05-03 10:22 | WOUNDNOTE ---
wound photo: right lower leg
--- NOTE | 2021-05-03 10:22 | WOUNDNOTE ---
wound photo: right lower leg
--- NOTE | 2021-05-03 10:23 | WOUNDNOTE ---
wound photo: right lower leg
--- NOTE | 2021-05-03 11:00 | PCM.PN.ORT ---
Subjective Subjective Patient seen and examined. Pain is improving. Denies any new complaints. States she will reach out this morning to her asbestos shingle roofer in [place]. She is anticipating senior care facility placement closer to home. Objective Data Objective Data Vital Signs: Vital Signs Temp Pulse Resp BP Pulse Ox 98.9 F 81 18 104/59 L 94 05/03/21 08:11 05/03/21 08:11 05/03/21 08:11 05/03/21 08:11 05/03/21 08:11 Oxygen Flow Rate (L/min) 2 Oxygen Delivery Method Nasal Cannula Weight: 236 lb 15.951 oz Body Mass Index (BMI) 40.6 Intake & Output: Intake and Output for Last 24 Hours 05/01/21 05/02/21 05/03/21 23:59 23:59 23:59 Intake Total 1106 / 1206 1450 / 1450 Output Total 600 / 600 975 / 975 300 / 300 Balance 506 / 606 475 / 475 -300 / -300 Lab / Micro Data Result Diagrams: 05/03/21 06:44 05/03/21 06:44 Labs: Laboratory Results - last 24 hr 05/03/21 06:44: WBC 7.1, RBC 2.93 L, Hgb 8.8 L, Hct 27.7 L, MCV 94.5, MCH 30.0, MCHC 31.8 L, RDW Std Deviation 44.3 H, RDW Coeff of Anna 12.7, Plt Count 152, MPV 12.0, Immature Gran % (Auto) 0.400, Neut % (Auto) 76.5 H, Lymph % (Auto) 14.2 L, [place] % (Auto) 8.8, Eos % (Auto) 0.0, Baso % (Auto) 0.1, Absolute Neuts (auto) 5.5, Absolute Lymphs (auto) 1.01, Nucleated RBC % 0 05/03/21 06:44: Sodium 141, Potassium 3.7, Chloride 104, Carbon Dioxide 31.0, Anion Gap 6, BUN 7, Creatinine 0.59, Estim Creat Clear Calc 97.41, Est GFR (MDRD) Af Amer 137, Est GFR (MDRD) Non-Af 113, BUN/Creatinine Ratio 11.8, Glucose 115 H, Calcium 8.2 L Micro: Microbiology 05/01/21 13:50 Nasal Secretion SARS-CoV-2 Antigen (Rapid) - Final Physical Exam Narrative General - A&Ox3, NAD. VSS/AF Right lower extremity -incisional dressing minimally saturated with sanguinous fluid from the proximal pins. Ecchymotic overlying the anterior medial ankle with suspected developing blistering. minimal bloody drainage from the most proximal pin site, other pin sites appear hemostatic. SILT Sural, Saphenous, SPN, DPN, Tibial N. distributions. DP, PT 2+. BCR. FHL, EHL 5/5. No calf TTP. Assessment & Plan Assessment/Plan (1) Trimalleolar fracture of right ankle: PLAN: POD#2 s/p closed reduction, placement of right ankle external fixator - Pain control -oxycodone ordered for p.o. analgesia - Medicine following for medical management - PT/OT -nonweightbearing right lower extremity - DVT PPX -heparin per primary - I again encouraged her to reach out to her asbestos shingle roofer regarding definitive fixation of her ankle. If he is willing to take on the case, I would be happy to discuss the case with him. She would like placement, if needed, to be closer to home near [place]. She will likely need definitive fixation in the coming weeks as her soft tissues allow. I will order a CT scan of her right ankle for preoperative planning of definitive ORIF. - Case management - D/C planning
--- NOTE | 2021-05-03 11:40 | CT_ITS ---
STUDY: CT RIGHT LOWER EXTREMITY WITHOUT CONTRAST REASON FOR EXAM: Right ankle fracture, surgical planning. TECHNIQUE: Thin section transaxial imaging of the lower extremity was obtained, with sagittal and coronal reconstructed images. Individualized dose optimization techniques were used for this CT. COMPARISON: Intraoperative images 05/01/2021. FINDINGS: There is an oblique fracture of the distal fibular diaphysis with mild comminution and mild posterior displacement of the distal fragment (sagittal reconstructions 22-26; coronal reconstructions 68-72). There is a small corticated ossicle at the distal aspect of the lateral malleolus (coronal reconstructions 70, 71). There is a nondisplaced medial malleolar fracture (coronal reconstructions 57-61). There is a posterior malleolar fracture with an articular step-off of the proximal 0.2 cm (sagittal reconstructions 31-36). There is widening of the lateral aspect of the tibiotalar articulation (coronal reconstruction 60-63). Normal talar dome. There are external fixation pins in the mid tibial diaphysis and posterior tuberosity of the calcaneus. Otherwise, unremarkable talus, calcaneus, navicular and cuboid tarsal bones. Normal subtalar, talonavicular and calcaneocuboid articulations. Normal navicular-cuneiform, cuneiform tarsal bones and intercuneiform articulations. Normal tarsometatarsal articulations and metatarsals. Normal metatarsophalangeal joints, phalanges and interphalangeal joints. There is a multipartite os peroneum (sagittal reconstruction 29). There is soft tissue swelling. CT/Extremity Lower without Contra IMPRESSION: Trimalleolar fracture. Electronically Signed: Fredo Caballero MD at 12:27 EST Tel , Service support ,
--- NOTE | 2021-05-03 15:22 | WOUNDNOTE ---
Pt having a large amount of bleeding from the proximal pin site. removed dressings. pressure to site applied. bleeding slowed. applied lidocaine/epi to 2 el as ordered per Dr Paiz. covered with dry gauze, ABD pad and kerlix. Nursing aware to monitor site.
--- NOTE | 2021-05-03 15:28 | CASEMGMT ---
Social Work Call from [facility] and precert has been obtained. Physician updated. Pt notified and agreeable to discharge when medically ready. Plan: [facility] Skilled level of care under convalescent stay, when medically ready PETRONA Perez
[2021-05-03] MEDS: Gabapentin 800 MG Tablet PO ×2 (15:55→20:40)
[2021-05-03] MEDS: Lidocaine 1% /Epi 1:100 (50ml) 50 ML VIAL INFILT (15:56)
--- NOTE | 2021-05-03 16:41 | CM.ED ---
KARY called [facility] and spoke to mick Ashford RN. She said that patient is not being discharged. KARY remains available. Betty VAZQUEZ
--- NOTE | 2021-05-03 18:45 | PN.HOSP_ITS ---
Subjective Subjective Patient was seen and examined today, she still having drainage from her left leg where the external fixator is attached, I talked briefly with orthopedic surgery about her care today. We received approval for the patient to go to a alf facility today, at this point she is not stable enough to go and we would like to recheck her tomorrow. Patient requested a nicotine patch but she has been off cigarettes for 2 days and she only smokes 1/2 pack a day so I am reluctant to start her on any nicotine patch at this time. Objective Data Objective Data Vital Signs: Vital Signs Temp Pulse Resp BP Pulse Ox 98.1 F 86 16 102/64 96 05/03/21 14:00 05/03/21 14:00 05/03/21 14:00 05/03/21 14:00 05/03/21 14:00 Oxygen Flow Rate (L/min) 2 Oxygen Delivery Method Nasal Cannula Weight: 107.5 kg Body Mass Index (BMI) 40.6 Intake & Output: Intake and Output for Last 24 Hours 05/01/21 05/02/21 05/03/21 23:59 23:59 23:59 Intake Total 1106 / 1206 1450 / 1450 1050 / 1050 Output Total 600 / 600 975 / 975 1000 / 1000 Balance 506 / 606 475 / 475 50 / 50 Lab / Micro Data Result Diagrams: 05/03/21 06:44 05/03/21 06:44 Labs: Laboratory Results - last 24 hr 05/03/21 06:44: WBC 7.1, RBC 2.93 L, Hgb 8.8 L, Hct 27.7 L, MCV 94.5, MCH 30.0, MCHC 31.8 L, RDW Std Deviation 44.3 H, RDW Coeff of [place] 12.7, Plt Count 152, MPV 12.0, Immature Gran % (Auto) 0.400, Neut % (Auto) 76.5 H, Lymph % (Auto) 14.2 L, [place] % (Auto) 8.8, Eos % (Auto) 0.0, Baso % (Auto) 0.1, Absolute Neuts (auto) 5.5, Absolute Lymphs (auto) 1.01, Nucleated RBC % 0 05/03/21 06:44: Sodium 141, Potassium 3.7, Chloride 104, Carbon Dioxide 31.0, Anion Gap 6, BUN 7, Creatinine 0.59, Estim Creat Clear Calc 97.41, Est GFR (MDRD) Af Amer 137, Est GFR (MDRD) Non-Af 113, BUN/Creatinine Ratio 11.8, Glucose 115 H, Calcium 8.2 L Micro: Microbiology 05/01/21 13:50 Nasal Secretion SARS-CoV-2 Antigen (Rapid) - Final Radiography Diagnostic Testing: Radiology Impression Lower Extremity CT 05/03/21 11:40 IMPRESSION: Trimalleolar fracture. Electronically Signed: Fredo Caballero MD at 12:27 EST Tel , Service support , Physical Exam Const alert, oriented x3 and no apparent distress General Appearance: cooperative, well kempt and well developed Orientation / Consciousness: awake, oriented to person, oriented to place and oriented to time HEENT normocephalic and head/scalp atraumatic Head and Scalp: normocephalic Eyes PERRL, EOMs intact bilaterally and conjunctivae normal Neck nuchal rigidity, supple, no JVD, thyroid normal and no carotid bruits General: trachea midline Resp normal respiratory effort, no retractions, no use of accessory muscles and clear to auscultation bilaterally Auscultation: Negative for rales, rhonchi or wheezes Cardio regular rate, regular rhythm, S1 normal heart sound, S2 normal heart sound, no murmurs, no rub and no gallops GI normal to inspection, nondistended, normoactive bowel sounds, soft to palpation, non-tender and non-distended Extremity Extremity Narrative: There is an external fixator noted over the patient's right lower leg Skin no rashes or lesions noted General Skin Exam: no breakdown Neuro oriented x3, CN's II-XII intact bilaterally, no focal motor deficits and no sensory deficits noted Sensorium / Orientation: awake and alert Speech: speech normal Psych thought process normal and affect normal Assessment & Plan Assessment/Plan (1) Trimalleolar fracture of right ankle: PLAN: 1. Trimalleolar fracture of the right ankle-postop day #2, patient will need placement in a alf facility, until she is discharged, PT and OT will continue to see the patient. #2 chronic hypoxic respiratory failure-patient states she has oxygen at home at 2 L but she does not wear it at all times #3 chronic obstructive pulmonary disease #4 hyperlipidemia #5 chronic depression #6 essential hypertension #7. Coronary artery disease #8 chronic anxiety disorder Charges/Coding Visit Charges Inpatient E&M: 77751 Subs Hosp L2
[2021-05-03] MEDS: 0.9% Saline Lock 10 ML Syringe IV ×2 (20:19→23:21)
[2021-05-03] MEDS: Amitriptyline 25 MG Tablet PO (20:40)
[2021-05-03] MEDS: Atorvastatin Calcium 80 MG Tablet PO (20:40)
[2021-05-04] MEDS: Nystatin Powder 15gm Bottle 1 APPLIC TOPICAL ×2 (00:12→06:51)
[2021-05-04 03:09] VITALS: BP 109/74; PULSE 69; RESP 16; TEMP 36.9; O2SAT 100
[2021-05-04] MEDS: HYDROmorphone 0.5 MG/0.5 ML SYRINGE IV ×3 (03:58→12:35)
[2021-05-04] MEDS: 0.9% Saline Lock 10 ML Syringe IV ×3 (03:59→12:36)
[2021-05-04] MEDS: Heparin Injection (Vial) 5,000 UNIT/ML VIAL 5000 UNIT SC ×2 (06:45→13:26)
[2021-05-04] MEDS: Gabapentin 800 MG Tablet PO ×2 (06:45→13:26)
--- NOTE | 2021-05-04 06:46 | PN.ORTHO_ITS ---
Subjective Subjective Patient seen and examined at bedside this morning. Patient was resting comfortably. Objective Data Objective Data Vital Signs: Vital Signs Temp Pulse Resp BP Pulse Ox 98.5 F 69 16 109/74 100 05/04/21 03:09 05/04/21 03:09 05/04/21 03:09 05/04/21 03:09 05/04/21 03:09 Oxygen Flow Rate (L/min) 2 Oxygen Delivery Method Nasal Cannula Weight: 236 lb 15.951 oz Body Mass Index (BMI) 40.6 Intake & Output: Intake and Output for Last 24 Hours 05/02/21 05/03/21 05/04/21 23:59 23:59 23:59 Intake Total 1450 / 1450 1050 / 1530 720 / 720 Output Total 975 / 975 1000 / 1400 700 / 700 Balance 475 / 475 50 / 130 Lab / Micro Data Result Diagrams: 05/03/21 06:44 05/03/21 06:44 Labs: Laboratory Results - last 24 hr 05/03/21 06:44: WBC 7.1, RBC 2.93 L, Hgb 8.8 L, Hct 27.7 L, MCV 94.5, MCH 30.0, MCHC 31.8 L, RDW Std Deviation 44.3 H, RDW Coeff of [place] 12.7, Plt Count 152, MPV 12.0, Immature Gran % (Auto) 0.400, Neut % (Auto) 76.5 H, Lymph % (Auto) 14.2 L, [place] % (Auto) 8.8, Eos % (Auto) 0.0, Baso % (Auto) 0.1, Absolute Neuts (auto) 5.5, Absolute Lymphs (auto) 1.01, Nucleated RBC % 0 05/03/21 06:44: Sodium 141, Potassium 3.7, Chloride 104, Carbon Dioxide 31.0, Anion Gap 6, BUN 7, Creatinine 0.59, Estim Creat Clear Calc 97.41, Est GFR (MDRD) Af Amer 137, Est GFR (MDRD) Non-Af 113, BUN/Creatinine Ratio 11.8, Glucose 115 H, Calcium 8.2 L Micro: Microbiology 05/01/21 13:50 Nasal Secretion SARS-CoV-2 Antigen (Rapid) - Final Radiography Diagnostic Testing: Radiology Impression Lower Extremity CT 05/03/21 11:40 IMPRESSION: Trimalleolar fracture. Electronically Signed: Fredo Caballero MD at 12:27 EST Tel , Service support , Physical Exam Narrative General-resting comfortably, in NAD Right lower extremity-external fixator dressing appears stable in terms of drainage compared to last evening. Swelling stable. Foot is pink and well perfused. Swelling stable. Assessment & Plan Assessment/Plan (1) Trimalleolar fracture of right ankle: PLAN: POD#3 s/p closed reduction, placement of right ankle external fixator -Sanguinous drainage much improved after compression dressing applied to proximal pain with lidocaine and epinephrine. Patient stable for transfer to custodial facility from my standpoint. She states she is going to follow- up with her favor maker in [place]. I will sign off at this time. Please call if any questions or concerns arise. I stressed to the patient if she is not able to arrange care in the next week or so, she should contact my office immediately to arrange follow-up as she will need subsequent surgery for definitive fixation of her trimalleolar ankle fracture. She expressed understanding.
[2021-05-04 07:15] VITALS: O2SAT 98
[2021-05-04 08:28] VITALS: BP 97/56; PULSE 73; RESP 16; TEMP 36.6; O2SAT 96
--- NOTE | 2021-05-04 09:20 | PCM.TXEXTCAR ---
Diet 05/02/21 18:09 Diet: Regular - General Is pt able to select menu?: Yes Routine Orders/Code Status O2 Liters per Minute: 2 O2 Frequency: Continuous Keep PO Greater than or Equal to (%): 90 Routine Lab Work: CBC (In 48 hours) and - (Serum iron level, TIBC please draw at [facility] facility) Wound(s) right ankle: Wound Type: pins sites with external fixator Dressing Change: xeroform Therapies Weight Bearing: Non weight bearing Physical Therapy: Eval and Treat Occupational Therapy: Eval and Treat Problem/Diagnosis (1) Trimalleolar fracture of right ankle: Status: Acute (2) Coronary artery disease: Status: Chronic (3) COPD (chronic obstructive pulmonary disease): Status: Chronic (4) Anemia: Status: Acute Comment: Etiology unclear, patient will need a serum iron and TIBC drawn at the [facility]itentiary facility Allergies/Procedures Done in Hospital Allergies amoxicillin Allergy (Verified 05/01/21 09:45) Anaphylaxis cephalexin Allergy (Verified 05/01/21 09:45) Anaphylaxis clarithromycin [From Biaxin] Allergy (Verified 05/01/21 09:45) Anaphylaxis cortisone Allergy (Verified 05/01/21 09:45) Anaphylaxis erythromycin base Allergy (Verified 05/01/21 09:45) Anaphylaxis hydralazine Allergy (Verified 05/01/21 09:45) Other morphine Allergy (Verified 05/01/21 09:45) Shortness of breath Penicillins Allergy (Verified 05/01/21 09:45) Anaphylaxis Sulfa (Sulfonamide Antibiotics) Allergy (Verified 05/01/21 09:45) Shortness of breath amlodipine [From Norvasc] Adverse Reaction (Verified 05/01/21 09:45) Other hydroxyzine Adverse Reaction (Verified 05/01/21 09:45) Nausea/Vom/Diarrhea ibuprofen Adverse Reaction (Verified 05/01/21 09:45) Nausea/Vom/Diarrhea ketorolac Adverse Reaction (Verified 05/01/21 09:45) Diarrhea paper tape Adverse Reaction (Uncoded 05/01/21 09:45) Other Procedures: - (Closed reduction of right ankle fracture/dislocation and application of spanning external fixator right ankle-05/01/2121) Type of Care/Length of Stay Estimated LOS: Convalescent Care Less Than 30 days Type of Care Needed: Skilled Rehab Potential: Good Prognosis: Good Additional Orders/Day of Discharge H&P will serve as current which was dated: 05/01/21 Day of Discharge: 05/04/21 Discharge Plan Admission Admit Date/Time: 05/01/21 08:34 Primary Reason for Your Visit: Trimalleolar ankle fracture-right ankle Attending Provider: Mac Ag Primary Care Provider: Amaris Rosales Consulting Providers: Lauro Paiz Instructions Additional Instructions / Restrictions: Follow-up for treatment of your right trimalleolar fracture with your copy center specialist Discharge Orders/Prescriptions Prescriptions: New nystatin [Nyamyc] 100,000 unit/gram Powder 1 applic topical TID Qty: 0 RF: 0 oxycodone 5 mg Tablet 10 mg PO Q4H PRN PRN (Reason: Pain Score 6-10) 7 Days Qty: 25 RF: 0 enoxaparin [Lovenox] 40 mg/0.4 mL syringe 40 mg subcut DAILY Qty: 0.4 RF: 0 Continued promethazine 12.5 mg Tablet 12.5 mg PO Q6H PRN PRN (Reason: Nausea And Vomiting) RF: 0 famotidine 20 mg Tablet 20 mg PO BID RF: 0 aspirin [Aspirin Low Dose] 81 mg Tablet,Delayed Release (Dr/Ec) 81 mg PO DAILY RF: 0 amitriptyline 25 mg Tablet 25 mg PO QHS RF: 0 fluoxetine 40 mg Capsule 60 mg PO DAILY RF: 0 furosemide 40 mg Tablet 40 mg PO BID RF: 0 atorvastatin 80 mg Tablet 80 mg PO QHS RF: 0 gabapentin 800 mg Tablet 800 mg PO TID RF: 0 albuterol sulfate 2.5 mg /3 mL (0.083 %) Solution For Nebulization 2.5 mg INHALATION Q6H RF: 0 nystatin 100,000 unit/gram Cream 1 applic TOPICAL BID PRN (Reason: Rash) RF: 0 metoprolol succinate 25 mg Tablet Extended Release 24 Hr 25 mg PO DAILY RF: 0 Nurtec ODT 75 mg Tablet,Disintegrating 75 mg PO DAILY PRN (Reason: Migraine Headache) RF: 0 ondansetron 4 mg Tablet,Disintegrating 4 mg PO Q8H PRN (Reason: Nausea And Vomiting) RF: 0 pantoprazole 20 mg Tablet,Delayed Release (Dr/Ec) 40 mg PO DAILY RF: 0 calcium carbonate-vitamin D2 500 mg(1,250mg) -200 unit Tablet 1 tab PO BID RF: 0 Changed potassium chloride 20 mEq Tablet Extended Release 20 meq PO BID Qty: 0 RF: 0 Discontinued clonidine HCl 0.1 mg Tablet 0.1 mg PO BID RF: 0 Referrals / Follow Up: Amaris Rosales PA [Primary Care Provider] - See Referral Note (Within 2 weeks) Disposition Disposition (needs filled in before D/C Order can be placed): Group Home Facility
[2021-05-04 10:23] VITALS: PULSE 73
[2021-05-04] MEDS: FLUoxetine 20 MG Capsule 60 MG PO (10:23)
[2021-05-04] MEDS: Metoprolol(XL)Succ 25 MG Tablet PO (10:23)
[2021-05-04] MEDS: Furosemide 40 MG Tablet PO (10:23)
[2021-05-04] MEDS: Pantoprazole Sodium 40 MG Tablet PO (10:23)
[2021-05-04] MEDS: oxyCODONE 5 MG Tablet 10 MG PO (10:24)
--- NOTE | 2021-05-04 11:23 | CASEMGMT ---
Addendum entered by Dee Dee Osborn 05/04/21 11:37: Social Work Jalyn Last [employer] Instructor at [facility] notified of discharge plan. PETRONA Perez Original Note: Social Work Per physician, pt is ready for discharge. 7000 convalescent form completed in [employer] system. Orders faxed to [facility]. Transportation arranged with [facility] for 1345 pickling grader by cot. Pt notified and agreeable to discharge plan. Phone call to Shanthi at [facility] and updated on discharge time. Plan: [facility], skilled level of care under convalescent stay\ PETRONA Perez
--- NOTE | 2021-05-04 15:17 | PCM.DC.SUM ---
Providers Date of Admission: 05/01/21 Date of Discharge: 05/04/21 Primary Care Physician: MATT Ramos Consultations 05/01/21 10:30 Consult: Orthopedics Routine Consulting Provider: Lauro Paiz Reason for Consult: ankle fracture EMERGENT Consult: No MD Notified: Yes Date Notified: 05/01/21 Time Notified: 10:31 Method of Notification: phone Method of Consult:: In-Person Reason For Visit: RT ANKLE FRACTURE Diagnosis Discharge Diagnosis (1) Trimalleolar fracture of right ankle: Status: Acute Code(s): S82.851A - Displaced trimalleolar fracture of right lower leg, initial encounter for closed fracture (2) Coronary artery disease: Status: Chronic Code(s): I25.10 - Atherosclerotic heart disease of telida coronary artery without angina pectoris (3) COPD (chronic obstructive pulmonary disease): Status: Chronic Code(s): J44.9 - Chronic obstructive pulmonary disease, unspecified (4) Anemia: Status: Acute Code(s): D64.9 - Anemia, unspecified Plan: 1. Trimalleolar fracture of the right ankle #2 chronic hypoxic respiratory failure #3 chronic obstructive pulmonary disease #4 hyperlipidemia #5 chronic depression #6 essential hypertension #7. Coronary artery disease #8 chronic anxiety disorder Medications at Discharge Home Medications Nurtec ODT 75 mg PO DAILY PRN 05/01/21 albuterol sulfate 2.5 mg INHALATION Q6H 05/01/21 amitriptyline 25 mg PO QHS 05/01/21 aspirin [Aspirin Low Dose] 81 mg PO DAILY 05/01/21 atorvastatin 80 mg PO QHS 05/01/21 calcium carbonate-vitamin D2 1 tab PO BID 05/01/21 famotidine 20 mg PO BID 05/01/21 fluoxetine 60 mg PO DAILY 05/01/21 furosemide 40 mg PO BID 05/01/21 gabapentin 800 mg PO TID 05/01/21 metoprolol succinate 25 mg PO DAILY 05/01/21 nystatin 1 applic TOPICAL BID PRN 05/01/21 ondansetron 4 mg PO Q8H PRN 05/01/21 pantoprazole 40 mg PO DAILY 05/01/21 promethazine 12.5 mg PO Q6H PRN PRN 05/01/21 enoxaparin [Lovenox] 40 mg SUBCUT DAILY #0.4 ml 05/04/21 nystatin [Nyamyc] 1 applic TOPICAL TID #0 g 05/04/21 oxycodone 10 mg PO Q4H PRN PRN 7 Days #25 tab 05/04/21 potassium chloride 20 meq PO BID #0 tab 05/04/21 Hospital Course Operations - (Closed reduction of right ankle fracture and dislocation, application of spanning external fixator right ankle) Procedures None Summary of Care Provided Minutes Spent on Discharge: 32 Hospital Course: This 51-year-old white female was seen in the emergency room at [facility] after sustaining a mechanical fall at home and hurting her left ankle. He states that happened the day before. She had gone to an outside emergency room for evaluation and was found to have a trimalleolar fracture of her right ankle. Patient was admitted to [facility] to and seen in consultation orthopedic surgery, she underwent external fixation of her right ankle. Patient was seen postop by PT and OT, it was recommended that the patient go to a long-term facility for short-term rehab services. On 05/04/2021, patient was seen and examined:alert, oriented x3 and no apparent distress General Appearance: cooperative, well kempt and well developed Orientation / Consciousness: awake, oriented to person, oriented to place and oriented to time HEENT normocephalic and head/scalp atraumatic Head and Scalp: normocephalic Eyes PERRL, EOMs intact bilaterally and conjunctivae normal Neck nuchal rigidity, supple, no JVD, thyroid normal and no carotid bruits General: trachea midline Resp normal respiratory effort, no retractions, no use of accessory muscles and clear to auscultation bilaterally Auscultation: Negative for rales, rhonchi or wheezes Cardio regular rate, regular rhythm, S1 normal heart sound, S2 normal heart sound, no murmurs, no rub and no gallops GI normal to inspection, nondistended, normoactive bowel sounds, soft to palpation, non-tender and non-distended Extremity Extremity Narrative: There is an external fixator noted over the patient's right lower leg Skin no rashes or lesions noted General Skin Exam: no breakdown Neuro oriented x3, CN's II-XII intact bilaterally, no focal motor deficits and no sensory deficits noted Sensorium / Orientation: awake and alert Speech: speech normal Psych thought process normal and affect normal Patient was transferred to a long-term facility in stable condition on 05/04/2021. Weight / BMI Weight Weight: 107.5 kg Body Mass Index (BMI) 40.6 ABG / Lab / Microbiology Data Result Diagrams: 05/03/21 06:44 05/03/21 06:44 Microbiology: Microbiology 05/04/21 10:55 Nasal Secretion SARS-CoV-2 Antigen (Rapid) - Final 05/01/21 13:50 Nasal Secretion SARS-CoV-2 Antigen (Rapid) - Final Meaningful Use Info Meaningful Use Diagnoses (Choose all that apply): None applicable Discharge Plan Admission Admit Date/Time: 05/01/21 08:34 Primary Reason for Your Visit: Trimalleolar ankle fracture-right ankle Attending Provider: Mac Ag Primary Care Provider: Amaris Rosales Consulting Providers: Lauro Paiz Instructions Additional Instructions / Restrictions: Follow-up for treatment of your right trimalleolar fracture with your store product demonstrator Discharge Orders/Prescriptions Prescriptions: New nystatin [Nyamyc] 100,000 unit/gram Powder 1 applic topical TID Qty: 0 RF: 0 oxycodone 5 mg Tablet 10 mg PO Q4H PRN PRN (Reason: Pain Score 6-10) 7 Days Qty: 25 RF: 0 enoxaparin [Lovenox] 40 mg/0.4 mL syringe 40 mg subcut DAILY Qty: 0.4 RF: 0 Continued promethazine 12.5 mg Tablet 12.5 mg PO Q6H PRN PRN (Reason: Nausea And Vomiting) RF: 0 famotidine 20 mg Tablet 20 mg PO BID RF: 0 aspirin [Aspirin Low Dose] 81 mg Tablet,Delayed Release (Dr/Ec) 81 mg PO DAILY RF: 0 amitriptyline 25 mg Tablet 25 mg PO QHS RF: 0 fluoxetine 40 mg Capsule 60 mg PO DAILY RF: 0 furosemide 40 mg Tablet 40 mg PO BID RF: 0 atorvastatin 80 mg Tablet 80 mg PO QHS RF: 0 gabapentin 800 mg Tablet 800 mg PO TID RF: 0 albuterol sulfate 2.5 mg /3 mL (0.083 %) Solution For Nebulization 2.5 mg INHALATION Q6H RF: 0 nystatin 100,000 unit/gram Cream 1 applic TOPICAL BID PRN (Reason: Rash) RF: 0 metoprolol succinate 25 mg Tablet Extended Release 24 Hr 25 mg PO DAILY RF: 0 Nurtec ODT 75 mg Tablet,Disintegrating 75 mg PO DAILY PRN (Reason: Migraine Headache) RF: 0 ondansetron 4 mg Tablet,Disintegrating 4 mg PO Q8H PRN (Reason: Nausea And Vomiting) RF: 0 pantoprazole 20 mg Tablet,Delayed Release (Dr/Ec) 40 mg PO DAILY RF: 0 calcium carbonate-vitamin D2 500 mg(1,250mg) -200 unit Tablet 1 tab PO BID RF: 0 Changed potassium chloride 20 mEq Tablet Extended Release 20 meq PO BID Qty: 0 RF: 0 Discontinued clonidine HCl 0.1 mg Tablet 0.1 mg PO BID RF: 0 Referrals / Follow Up: Amaris Rosales, PA [Primary Care Provider] - See Referral Note (Within 2 weeks) Disposition Disposition (needs filled in before D/C Order can be placed): [facility] Facility Charges/Coding Visit Charges Inpatient E&M: 90532 Disch Hosp
== END 2021-05-04 14:48 | disposition skilled nursing facility (03) | DRG 313 ==
PROVIDERS: Family Medicine; Student in an Organized Health Care Education/Training Program; Admitting Provider Family Medicine; PCP Physician Assistant Medical; Visit Provider Internal Medicine
PROC: 0QSG35Z Reposition Right Tibia with External Fixation Device, Percutaneous Approach (ICD-10-PCS; principal; 2021-05-01 14:50)
DX: S82.851A Displaced trimalleolar fracture of right lower leg, initial encounter for closed fracture (principal); D64.9 Anemia, unspecified; F41.9 Anxiety disorder, unspecified; J44.9 Chronic obstructive pulmonary disease, unspecified; F32.A Depression, unspecified; K21.9 Gastro-esophageal reflux disease without esophagitis; I10 Essential (primary) hypertension; F17.210 Nicotine dependence, cigarettes, uncomplicated; Z79.02 Long term (current) use of antithrombotics/antiplatelets; I25.10 Atherosclerotic heart disease of native coronary artery without angina pectoris; E78.5 Hyperlipidemia, unspecified; E66.01 Morbid (severe) obesity due to excess calories; Z68.41 Body mass index [BMI] 40.0-44.9, adult; J96.11 Chronic respiratory failure with hypoxia; Z79.51 Long term (current) use of inhaled steroids; Z79.899 Other long term (current) drug therapy; Z86.718 Personal history of other venous thrombosis and embolism; X50.1XXA Overexertion from prolonged static or awkward postures, initial encounter; Y93.9 Activity, unspecified; Y92.89 Other specified places as the place of occurrence of the external cause; Y99.8 Other external cause status
CPT/HCPCS: 36415; 73600; 73700; 76000; 80048; 85025; 87426; 93005; 94640; 97110; 97162; 97166; 97530; 97535; 99251; C1713; J7030; A4216; G0463

== ENCOUNTER 2021-06-07 13:52 | Observation (INO) | payer MEDICAID, SELFPAY ==
[2021-05-28 11:17] LABS: Absolute Lymphocyte Count 2.16 X10^3/uL (0.83-4.51); Absolute Neutrophil Count 4.4 X10^3/uL (2.0-7.7); Basophil# 0.02 X10^3/uL; Basophil% 0.3 % (0-1); Eosinophil# 0.19 X10^3/uL; Eosinophils% 2.6 % (0-5); Hematocrit 43.5 % (37-47); Hemoglobin 13.9 g/dL (12.0-15.0); Lymphocyte # 2.16 X10^3/ul (0.83-4.51); Lymphocyte % 29.3 % (19-41); Mean Corpuscular Hgb 30.9 pg (27.0-32.0); Mean Corpuscular Volume 96.7 fL (81-99); Mean Platelet Vol. 11.5 fl (6.2-12.0); Monocyte# 0.64 X10^3/uL; Monocyte% 8.7 % (0-10); NRBC Flagged by Analyzer 0 % (0-5); Neutrophil # 4.35 X10^3/uL (2.7-7.7); Neutrophil % 58.8 % (47-70); Platelet Count 210 K/mm3 (150-450); RBC Distribution Width CV 13.8 % (11.6-14.6); RBC Distribution Width SD 49.1 fl (35.1-43.9); White Blood Count 7.4 K/mm3 (4.4-11.0)
--- NOTE | 2021-05-28 11:30 | RAD_ITS ---
STUDY: X-RAY CHEST REASON FOR EXAM: Female, 51 years old. Preop for pelvic surgery TECHNIQUE: PA and 2 lateral views of the chest. COMPARISON: None. FINDINGS: The lungs are clear and expanded. There is no demonstrated pleural abnormality. Normal size heart. Normal mediastinum and christopher. Normal visualized pulmonary arteries. Normal visualized aortic arch and descending thoracic aorta. Normal visualized thoracic spine. Normal visualized ribs, clavicles, and shoulders. There is no demonstrated abnormality of the visualized soft tissue structures of the upper abdomen. RAD/Chest PA and Lateral IMPRESSION: No acute pulmonary process Electronically Signed: Hamilton Warren MD at 14:26 EST , Service support ,
[2021-05-28 11:37] LABS: Anion Gap 5 (5-15); BUN 10 mg/dL (7-18); BUN/Creat Ratio 10.1 RATIO (10-20); Calcium,Total 9.3 mg/dL (8.5-10.1); Chloride 102 mmol/L (98-107); Creatinine, Serum 0.99 mg/dL (0.55-1.02); EST Glomerular Filtration Rate 63 mL/min (>60); Est Glom Filt Rate - Afr Amer 76 mL/min (>60); Glucose 100 mg/dL (74-106); Potassium 4.1 mmol/L (3.5-5.1); Sodium Level 140 mmol/L (136-145)
[2021-06-07] VITALS (17 sets, daily range): BP systolic 93–145; BP diastolic 58–87; PULSE 58–92; RESP 16–20; TEMP 36.1–36.6; O2SAT 82–100; BMI 38.3
[2021-06-07] MEDS: Lactated Ringers 1,000 ML 15 ML IV (06:41)
--- NOTE | 2021-06-07 07:30 | RAD_ITS ---
STUDY: X-RAY - RIGHT ANKLE REASON FOR EXAM: Female, 51 years old. Removal of pins and ankle. TECHNIQUE: 5 intraoperative digital documentation view(s) of the ankle. COMPARISON: 05/01/2021. FINDINGS: 5 intraoperative digital documentation images show plate and screw fixation of the distal fibula, posterior plate and screw fixation of the distal tibia and cancellus screw placement across the medial malleolus. RAD/Ankle 2 Views IMPRESSION: Intraoperative digital documentation views. Electronically Signed: Ernesto Morrissey MD at 13:37 EST , Service support ,
[2021-06-07] MEDS: Mupirocin Ointment 22gm Tube 1 APPLIC (09:54)
[2021-06-07] MEDS: Bupivacaine Mpf 0.5% 30 ML VIAL (09:55)
[2021-06-07] MEDS: oxyCODONE 5 MG Tablet PO (11:53)
[2021-06-07] MEDS: Ipratropium/Albuterol Sulfate 3 ML AMPUL.NEB INHALATION (12:18)
--- NOTE | 2021-06-07 14:11 | CM.ED ---
SW Note SW received call from Rudolph in [place]. Rudolph said that patient has concentrator at home but does not use it. Rudolph said that patient needs oxygen for discharge. Patient is in [place] with director of casework services. KARY asked who patient's oxygen providers are and Rudolph said that patient does not know her provider. Rudolph asked patient if her oxygen was [employer], [employer] or [employer] and patient said that none of the names sounded familiar. KARY updated CM Rosi Bowers. KARY called Rudolph in [place]. Patient is from home. Rudolph said that patient is non weight bearing and the director of casework services felt patient needed to be admitted. Rudolph said that patient said that she wanted home health and they tried to get home health in [place] but no one was available. KARY educated that there are limited home health providers at this time to RN. Plan: Per Rudolph patient will be admitted. Betty VAZQUEZ
--- NOTE | 2021-06-07 14:18 | CM.ED ---
Addendum entered by Betty Sandhu 06/07/21 14:39: KARY called [facility] [phone]. Spoke to Alex. Patient came to their facility on 05/04/21 and was admitted at 4:15pm and gone by 7:30pm. Per notes patient is a smoker and did not like the no smoking rule at the facility at that time. Alex said that patient was not giving up her tobacco products. Alex said that now they allow smoking but no smoking or tobacco products in the room. Alex said that [facility] can refer patient. . Original Note: KARY Note K[place] [facility] Amaris [place]imb[facility]. Home oxygen is from [facility] [address] [facility] and ordering MD was Sukumar Healy. Betty BENITES LIS
--- NOTE | 2021-06-07 15:23 | SUR.PHASEII ---
THIS NURSE GOT THE PATIENT TRANSFERRED OVER TO THE FLOOR BED. I GOT HER SETTLED. I ELEVATED HER RIGHT LEG AND APPLIED NEW ICE. PATIENT IS ON 2 LITERS O2 AND IS GOING TO REST. NO C/O PAIN.
--- NOTE | 2021-06-07 15:25 | SUR.PHASEII ---
PATIENT CONSIDERED FLOOR PATIENT AT THIS TIME.
[2021-06-07] MEDS: oxyCODONE 5 MG Tablet 10 MG PO ×2 (16:20→21:20)
--- NOTE | 2021-06-07 16:26 | PCM.OPRPT ---
Report of Operation Date of Procedure: 06/07/21 Description of Surgical Findings:: Preoperative diagnosis: Right ankle trimalleolar fracture dislocation Postoperative diagnosis: Right ankle trimalleolar fracture dislocation Procedure: Right ankle open reduction internal fixation of posterior, lateral and medial malleoli Surgeon: Lauro Paiz DO Sewing Techniques Demonstrator: Karen Jackson PA-C Anesthesia: General endotracheal with popliteal block Anesthesiologist: Dr. Simmons Precision Instrument Maker: Kamaljit Clay CRNA Complications: None Drains: None Estimated blood loss: 50 cc Urinary output: None cc IV fluids: Per anesthesia record Specimens: None Surgical implants: Arthrex 4-hole one third tubular plate, 8 hole 3.5 mm recon plate, single 4.0 mm cannulated screw Surgical indications: This is a 51-year-old female who sustained a trimalleolar ankle fracture dislocation 04/30/2021 at her home in [place] where she resides. She was brought to the emergency department in her hometown without orthopedic coverage. I was contacted by the emergency room physician and agreed to see the patient in consultation upon transfer. Patient's ankle was still dislocated when she arrived early the morning of 05/01/2021. I performed an urgent closed reduction and application of joint spanning external fixator 05/01/2021. Patient subsequently declined snf facility placement and was discharged to home. Patient requested her local automotive buyer to take over her case. I was informed approximately a week or 2 after she was discharged that this arrangement could not be established and the patient followed up with me approximately 10 days ago. Despite multiple efforts to bring her in sooner, stated she could not come any sooner for preoperative visit. Multiple attempts to relay the need for timely definitive surgical intervention were addressed with the patient. Nevertheless, I saw the patient approximately 10 days ago, I recommended open reduction internal fixation and removal of external fixator. The risk, benefits, alternatives the procedure reviewed with patient at length. Risks included but were not limited to bleeding, infection, loss of life or limb, need for additional surgery, persistent pain, nonunion or malunion, neurovascular injury, DVT or PE, risk of anesthesia. Patient expressed understanding his risk was proceed with surgery. Description of procedure: Patient was seen in preoperative holding area. She was identified by name, medical record number, date of . The operative extremity was marked with a surgical marker. We confirmed informed consent with the patient and all questions were answered to her satisfaction. At time of her procedure, patient was brought to the operative suite. General anesthesia was induced on the gurney. After adequate anesthesia, the external fixator was removed after prepping the pin sites with Betadine. Pin sites were then curetted. Patient was then flipped after the endotracheal tube was placed and secured into the prone position with all bony prominences well-padded. A well-padded pneumatic tourniquet was applied to the right upper thigh. A large bump was placed in the patient's left hip. The right lower extremity was elevated on bath blankets for fluoroscopic imaging and access to the limb during surgery. We secured this with tape as well as the nonoperative extremity. We then performed a timeout with all parties in attendance and agree with the side, site, operation to be performed. No concerns were voiced and elected to proceed. 2 g Ancef was administered prior to incision by the anesthesia staff. The right lower extremity was then prepped and draped in a normal, sterile orthopedic fashion using ChloraPrep. I first plan my posterior lateral incision midway between the lateral border of the Achilles and the posterior border of the fibula approximately 10 cm in length. Skin was sharply incised after the extremity was exsanguinated Esmarch bandage and tourniquet inflated to 275 mmHg. I sharply incised the skin. I quickly switched to blunt dissection and identified the sural nerve and accompanying vessel. This was protected throughout the case and retracted medially. I bluntly dissected to the level of the FHL fascia. This was split in line with the incision with a 15 blade scalpel. I then subperiosteally elevated the FHL from the posterior tibia. This identified the posterior malleolus fracture. With a combination of dorsiflexion of the ankle and direct pressure with a Richard elevator, I was able to anatomically reduce the posterior malleolus. A posterior to anterior lag screw 3.5 mm was then placed for added compression across the fracture site. Fluoroscopic images confirmed reduction. A one third tubular 4-hole plate was utilized as a buttress plate was placed at the apex of the incision, with appropriately sized cortical screws with good purchase. I then turned my attention to the lateral malleolus. There was posterior comminution noted. I had to free significant callus from the fracture site to lengthen the fibula. I then chose an 8 hole recon plate which was secured to the bone with cortical screws and produced plate assisted reduction of the fibula. Fluoroscopic images confirmed appropriate reduction and hardware placement. I then turned my attention medially to the medial malleolus. I planned incision centered over the medial malleolus. Skin was sharply incised with 15 blade scalpel. Blunt dissection was used to identify any crossing bleeders from saphenous vein. These were cauterized with Bovie cautery. Periosteum of the medial malleolus was elevated at the level of the fracture. Call clamp was used to clamp across the transverse component. A K wire was driven across the fracture site and a partially threaded 4.0 mm cancellous screw was then used to secure the transverse component with good purchase. Final fluoroscopic images were obtained and demonstrate appropriate aligned fracture, properly positioned hardware and appropriately sized hardware. Tourniquet was then deflated. Hemostasis was excellent. Wounds were copiously irrigated with normal saline solution. I performed a saphenous and sural nerve block with 10 cc total of 0.5% plain Marcaine. Dermis was reapproximated 2-0 Vicryl suture. Skin closed with nylon suture. A well-padded AO type splint was then applied with a sterile compression dressing. Patient was then repositioned supine, anesthesia reversed and subsequently extubated in the operative suite. Patient tolerated procedure well without complication. She was transferred to PACU in stable condition. Intraoperative medications: 2 g Ancef IV by anesthesia prior to incision 10 cc 0.5% plain Marcaine Post Operative Plan: Weightbearing: Nonweightbearing operative extremity Antibiotics: Ancef 2 g x 1 dose preoperatively DVT Prophylaxis: Restart home Effient 06/08/2021 Matthew: None Dressing: Maintain splint, keep it clean dry and intact until follow-up X-Rays: 3 weeks postop in the office Pain Medication: Percocet Rx upon discharge Follow-up: 3 weeks post-operatively with me in the office Patient had significant oxygen desaturation on room air after leaving PACU. Patient does have oxygen at home, however given the long ride and change in O2 requirements, patient will be placed in observation overnight and proper arrangements made tomorrow for likely discharge to home.
[2021-06-07] MEDS: Furosemide 40 MG Tablet PO (17:21)
[2021-06-07] MEDS: Albuterol 2.5 MG/3 ML VIAL.NEB. INHALATION (19:19)
[2021-06-07] MEDS: Cefazolin 1 GM/50 ML BAG IV (21:19)
[2021-06-07] MEDS: ALPRAZolam 0.5 MG Tablet PO (21:20)
[2021-06-07] MEDS: Gabapentin 800 MG Tablet PO (21:23)
[2021-06-07] MEDS: Amitriptyline 25 MG Tablet PO (21:23)
[2021-06-07] MEDS: Atorvastatin Calcium 80 MG Tablet PO (21:23)
[2021-06-08 01:13] VITALS: BP 110/74; PULSE 85; RESP 16; TEMP 36.7; O2SAT 96
[2021-06-08] MEDS: oxyCODONE 5 MG Tablet 10 MG PO ×2 (01:18→05:23)
[2021-06-08] MEDS: Cefazolin 1 GM/50 ML BAG IV (04:44)
[2021-06-08 04:46] VITALS: BP 117/70; PULSE 71; RESP 18; TEMP 36.3; O2SAT 99
[2021-06-08] MEDS: Acetaminophen 500 MG Tablet 1000 MG PO (05:23)
[2021-06-08] MEDS: Gabapentin 800 MG Tablet PO (05:23)
[2021-06-08 07:58] VITALS: PULSE 66; RESP 16; O2SAT 95
[2021-06-08] MEDS: Albuterol 2.5 MG/3 ML VIAL.NEB. INHALATION (07:58)
[2021-06-08 08:34] VITALS: BP 98/62; PULSE 73; RESP 16; TEMP 37.1
[2021-06-08] MEDS: Furosemide 40 MG Tablet PO (08:39)
[2021-06-08] MEDS: Aspirin E.C. 81 MG Tablet PO (08:39)
[2021-06-08 08:40] VITALS: PULSE 91
[2021-06-08] MEDS: Metoprolol(XL)Succ 25 MG Tablet PO (08:40)
[2021-06-08 09:00] VITALS: RESP 16
[2021-06-08] MEDS: Pantoprazole Sodium 40 MG Tablet PO (10:11)
[2021-06-08] MEDS: FLUoxetine 20 MG Capsule 60 MG PO (10:12)
--- NOTE | 2021-06-08 10:22 | CM.ED ---
Addendum entered by Betty Sandhu 06/08/21 12:01: SW was advised by the that secretary administrative assistant had arranged transport for 12:00 noon today for patient. Patient said that she is ready to go home and has no concern about which ambulance company is called. Betty VAZQUEZ Original Note: KARY Note Referral Source: Ambulatory RN Reason: Discharge Planning SW met with patient in her room. Patient said that she lives by herself and does just fine myself. SW reviewed patient had gone to [facility] in the past and now they do allow smoking but no tobacco products in the room. Patient adamantly stated she is not going to a SNF but is going home. Patient said that she has a [facility] case investigator, Arlet, who she spoke to a couple of days ago and she is working on getting her a RN and aide in the home. Patient said that Carmine Yee from [facility] comes and checks on me. Patient said that the case investigator that was with her yesterday is her case investigator from [facility]. Patient reports diagnosis of anxiety/depression. Patient said that she is medication compliant. Patient's PCP is Connie in [place]. Patient sees Gianna Hurley in [place] for heart and cardiology issues. Patient reports she uses [facility]. Patient has [facility] insurance including prescription plan. Patient does not have Advanced Directives but wants information. Patient reports that her next of kin is her aunt Lena Kyle who resides in [place], father Eris Kyle who resides in [place] and stepmother, Estrella Kyle. Patient said that she resides at [facility] in [place]. She said that there is an elevator in the apartment unit and she resides on the 4th floor. The apartment is one floor. Patient reports she was independent prior to her hospitalization. Patient reports she has oxygen tank, oxygen concentrator, rollator, rollator, recliner chairs and walker. Patient stated that she is comfortable discharge home. Patient said that her MD is Dr. Davidson at [facility]. Patient reports she broke her ankle on 04/30/21. SW confirmed with patient she is going home and she said that she is comfortable. hospital secretary will arrange for transport for patient home when discharged. SW spoke to MD who indicated patient is at [facility] and will be discharged today. Plan: Home Betty VAZQUEZ
--- NOTE | 2021-06-08 10:36 | DS.PCM_ITS ---
Providers Date of Admission: 06/07/21 Primary Care Physician: MATT Ramos Reason For Visit: ORIF R ANKLE REMOVAL EXTERNAL FIXATOR Diagnosis Discharge Diagnosis (1) Trimalleolar fracture of right ankle: Status: Acute Code(s): S82.851A - Displaced trimalleolar fracture of right lower leg, initial encounter for closed fracture Plan: POD#1 s/p right ankle open reduction internal fixation trimalleolar fracture - Pain control -Oxygen saturations stable on 2 L O2. Patient has oxygen at home. She appears to be at baseline. Plan to arrange transfer with nasal cannula oxygen with plan to transition to home oxygen unit. - PT/OT - DVT PPX -restarting home Effient and aspirin today. - Case management - D/C planning Medications at Discharge Home Medications Nurtec ODT 75 mg PO DAILY PRN 05/01/21 albuterol sulfate 2.5 mg INHALATION Q6H 05/01/21 amitriptyline 25 mg PO QHS 05/01/21 aspirin [Aspirin Low Dose] 81 mg PO DAILY 05/01/21 atorvastatin 80 mg PO QHS 05/01/21 calcium carbonate-vitamin D2 1 tab PO BID 05/01/21 fluoxetine 60 mg PO DAILY 05/01/21 furosemide 40 mg PO BID 05/01/21 gabapentin 800 mg PO TID 05/01/21 metoprolol succinate 25 mg PO DAILY 05/01/21 nystatin 1 applic TOPICAL BID PRN 05/01/21 ondansetron 4 mg PO Q8H PRN 05/01/21 pantoprazole 40 mg PO DAILY 05/01/21 promethazine 12.5 mg PO Q6H PRN PRN 05/01/21 nystatin [Nyamyc] 1 applic TOPICAL TID #0 g 05/04/21 oxycodone 10 mg PO Q4H PRN PRN 7 Days #25 tab 05/04/21 potassium chloride 20 meq PO BID #0 tab 05/04/21 clonidine HCl 0.1 mg PO BID 06/05/21 prasugrel [Effient] 5 mg PO DAILY 06/05/21 alprazolam 0.5 mg PO TID PRN 06/07/21 oxycodone 5 mg PO Q4H PRN 7 Days #42 tab 06/07/21 Hospital Course Summary of Care Provided Minutes Spent on Discharge: 15 Hospital Course: Patient underwent uncomplicated right ankle trimalleolar fracture open reduction internal fixation, removal of external fixator. The plan was to be discharged as an outpatient. She had difficulty maintaining her O2 sats in PACU. She was placed in observation overnight. Transfer was arranged with nasal cannula oxygen. She has oxygen at home with plans to res tart her oxygen 2 L at home. She tolerated surgery without other complications. Pain was controlled. Physical Exam Narrative General - A&Ox3, NAD. VSS/AF Right lower extremity -incisional dressing/splint C/D/I. SILT in exposed toes. DP 2+. BCR. FHL, EHL 5/5. No calf TTP. Weight / BMI Weight Weight: 223 lb 5.252 oz Body Mass Index (BMI) 38.3 ABG / Lab / Microbiology Data Result Diagrams: 05/28/21 10:46 05/28/21 10:46 Microbiology: Microbiology 06/07/21 Unknown Nasal Secretion SARS-CoV-2 Antigen (Rapid) - Final Radiography Diagnostic Testing: Radiology Impression Ankle X-Ray 06/07/21 07:30 IMPRESSION: Intraoperative digital documentation views. Electronically Signed: Ernesto Morrissey MD at 13:37 EST , Service support , Meaningful Use Info Meaningful Use Diagnoses (Choose all that apply): None applicable Discharge Plan Admission Admit Date/Time: 06/07/21 13:52 Attending Provider: Lauro Paiz Primary Care Provider: Amaris Rosales Instructions Additional Instructions / Restrictions: Follow preprinted instructions from your surgeon's office. Discharge Orders/Prescriptions Prescriptions: New oxycodone 5 mg tablet 5 mg PO Q4H PRN (Reason: pain) 7 Days Qty: 42 RF: 0 Continued promethazine 12.5 mg Tablet 12.5 mg PO Q6H PRN PRN (Reason: Nausea And Vomiting) RF: 0 aspirin [Aspirin Low Dose] 81 mg Tablet,Delayed Release (Dr/Ec) 81 mg PO DAILY RF: 0 amitriptyline 25 mg Tablet 25 mg PO QHS RF: 0 fluoxetine 40 mg Capsule 60 mg PO DAILY RF: 0 furosemide 40 mg Tablet 40 mg PO BID RF: 0 atorvastatin 80 mg Tablet 80 mg PO QHS RF: 0 gabapentin 800 mg Tablet 800 mg PO TID RF: 0 albuterol sulfate 2.5 mg /3 mL (0.083 %) Solution For Nebulization 2.5 mg INHALATION Q6H RF: 0 nystatin 100,000 unit/gram Cream 1 applic TOPICAL BID PRN (Reason: Rash) RF: 0 metoprolol succinate 25 mg Tablet Extended Release 24 Hr 25 mg PO DAILY RF: 0 Nurtec ODT 75 mg Tablet,Disintegrating 75 mg PO DAILY PRN (Reason: Migraine Headache) RF: 0 ondansetron 4 mg Tablet,Disintegrating 4 mg PO Q8H PRN (Reason: Nausea And Vomiting) RF: 0 pantoprazole 20 mg Tablet,Delayed Release (Dr/Ec) 40 mg PO DAILY RF: 0 calcium carbonate-vitamin D2 500 mg(1,250mg) -200 unit Tablet 1 tab PO BID RF: 0 nystatin [Nyamyc] 100,000 unit/gram Powder 1 applic topical TID Qty: 0 RF: 0 oxycodone 5 mg Tablet 10 mg PO Q4H PRN PRN (Reason: Pain Score 6-10) 7 Days Qty: 25 RF: 0 potassium chloride 20 mEq Tablet Extended Release 20 meq PO BID Qty: 0 RF: 0 clonidine HCl 0.1 mg tablet 0.1 mg PO BID RF: 0 prasugrel [Effient] 5 mg Tablet 5 mg PO DAILY RF: 0 No Action alprazolam 1 mg tablet 0.5 mg PO TID PRN (Reason: Anxiety) RF: 0 Referrals / Follow Up: Lauro Paiz DO [STAFF PHYSICIAN] - 05/27/22 Amaris Rosales PA [Primary Care Provider] - Disposition Disposition (needs filled in before D/C Order can be placed): Home, Self Care
== END 2021-06-08 12:10 | disposition home or self-care (01) ==
LOC: SDC 16:11 → MS3 16:11
PROVIDERS: Admitting Provider Student in an Organized Health Care Education/Training Program; PCP Physician Assistant Medical; Referring Provider Student in an Organized Health Care Education/Training Program; Visit Provider Student in an Organized Health Care Education/Training Program
PROC: (CPT 27823; principal; 2021-06-07 07:10)
DX: S82.851A Displaced trimalleolar fracture of right lower leg, initial encounter for closed fracture (principal); X58.XXXA Exposure to other specified factors, initial encounter; Y93.9 Activity, unspecified; Y92.009 Unspecified place in unspecified non-institutional (private) residence as the place of occurrence of the external cause; K21.9 Gastro-esophageal reflux disease without esophagitis; M19.90 Unspecified osteoarthritis, unspecified site; J44.9 Chronic obstructive pulmonary disease, unspecified; M79.7 Fibromyalgia; I10 Essential (primary) hypertension; E78.00 Pure hypercholesterolemia, unspecified; G47.30 Sleep apnea, unspecified; F17.210 Nicotine dependence, cigarettes, uncomplicated; E66.8 Other obesity; Z68.38 Body mass index [BMI] 38.0-38.9, adult; Z79.899 Other long term (current) drug therapy
CPT/HCPCS: 01480; 27823; 64450; 36415; 71046; 73600; 76000; 80048; 85025; 87426; 94640; 96365; 96366; 99218; C1713; J7120; G0378; J2405